=== PATIENT | male | born 1975 | race Caucasian/White ===

== ENCOUNTER 2017-12-23 21:39 | Emergency (ER) | payer BC ==
--- NOTE | 2017-12-23 22:42 | EDM.PDOC ---
ED HPI GENERAL MEDICAL PROBLEM - General Chief Complaint: Abdominal Pain Stated Complaint: ABDOMINAL PAIN/BLOOD IN STOOL Time Seen by Provider: 12/23/17 22:39 Source of Information: Reports: Patient History Limitations: Reports: No Limitations - History of Present Illness INITIAL COMMENTS - FREE TEXT/NARRATIVE: 42-year-old male presents to the ED with diffuse upper and mid abdominal pain most of today. Associated diarrhea stools 3 which were semi-formed stool which contain bright red blood. This is the primary reason for him coming to the ED. Patient reports she stopped drinking alcohol about 3 weeks ago. He has not had any nausea vomiting and certainly has never had any he met emesis. Ever had any bleeding per rectum either. Stools usually were on the looser side when he was drinking alcohol but more recently have been calm more formed and somewhat difficult to pass. He had a hard painful stool yesterday. No associated fever or chills. Patient states for a while though he would have to lie still in the position due to the intensity of the abdominal pain. He has eaten today but not near as much is normal. Onset: Today Onset Date: 12/23/17 Onset Time: 08:00 Duration: Hour(s): Location: Reports: Abdomen (Diffuse mid and upper abdominal discomfort.), Other (Diarrhea with bright red blood noted in the stool.) Quality: Reports: Ache, Sharp, Stabbing, Other. Denies: Same as Previous Episode Severity: Moderate (4-5 out of 10) Improves with: Reports: Other Worsens with: Reports: Eating (Not eating) Context: Denies: Activity, Exercise, Lifting, Sick Contact, Trauma, Other Associated Symptoms: Reports: Loss of Appetite, Other (Preliminary bleeding per rectum). 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 He was primarily drinking beer. Usually less than 10 per day. He is currently in AA and enjoying 3 weeks of sobriety.) - Past Surgical History HEENT Surgical History: Reports: Myringotomy w Tube(s) Male Surgical History: Reports: Vasectomy Social & Family History - Caffeine Use Caffeine Use: Reports: Coffee, Soda - Recreational Drug Use Recreational Drug Use: No - Living Situation & Occupation Living situation: Reports: Occupation: Employed ED ROS GENERAL - Review of Systems Review Of Systems: See Below Constitutional: Reports: Chills, Weakness (Through chills.), Fatigue, Decreased Appetite. Denies: Fever, Malaise, Weight Loss HEENT: Reports: No Symptoms Respiratory: Reports: No Symptoms Cardiovascular: Reports: No Symptoms Endocrine: Reports: No Symptoms GI/Abdominal: Reports: Abdominal Pain (See history of present illness), Diarrhea , Decreased Appetite, Hematochezia, Nausea. Denies: Vomiting (Loose pasty stools.) : Reports: No Symptoms (Associated with the intensity of the cramping pain.) Musculoskeletal: Reports: No Symptoms Skin: Reports: No Symptoms Neurological: Reports: No Symptoms ED EXAM, GI/ABD - Physical Exam Exam: See Below Exam Limited By: No Limitations General Appearance: Alert, WD/WN, No Apparent Distress, Other (Patient is showing signs of orthostatic hypotension with slight drop in blood pressure upon standing. BP drop 1/20/86 lying to 113/84 standing heart rate went from 59- 86.) Eyes: Bilateral: Normal Appearance (No signs of jaundice.) Throat/Mouth: Normal Inspection, Normal Lips, Normal Oropharynx Head: Atraumatic, Normocephalic Neck: Normal Inspection, Supple, Non-Tender, Full Range of Motion. No: Lymphadenopathy (L), Lymphadenopathy (R) Respiratory/Chest: No Respiratory Distress, Lungs Clear, Normal Breath Sounds, No Accessory Muscle Use Cardiovascular: Normal Peripheral Pulses, Regular Rate, Rhythm, No Gallop, No Murmur GI/Abdominal Exam: Soft, Tender (Mild tenderness in the epigastrium), Abnormal Bowel Sounds (Hyperactive bowel sounds in all 4 quadrants.). No: Guarding, Rigid, Rebound ( and left lower quadrant and suprapubically.) (Male) Exam: No Hernia Rectal (Males) Exam: Normal Exam, Normal Rectal Tone, Other (Rigid sigmoidoscopy identified a small hemorrhoidal tag at the 3 o'clock position with no active bleeding. He does have a small basilic quarter inch anal fissure at the 6 o'clock position which is bleeding mildly.). No: Black Stool Back Exam: Normal Inspection Extremities: Normal Inspection, Normal Range of Motion, Non-Tender, No Pedal Edema Neurological: Alert, Oriented, CN II-XII Intact, Normal Cognition, Normal Gait, Inattentive Psychiatric: Normal Affect, Normal Mood Skin Exam: Warm, Dry, Intact, Normal Color, No Rash ED ABDOMINAL/GI PROCEDURES - Additional/Other Procedure(s) Procedure(s) (Free Text): Rigid sigmoidoscopy carried out to 18 cm. The bowel wall appears quite friable with numerous small blood vessels on the surface with no angiodysplasia evident. Stool at the 18 cm justice was dark green and semi-formed. I did identify a small hemorrhoidal tag at the 3 o'clock position with no active bleeding. Other hemorrhoids were identified. There is a small less than 1/4 inch anal fissure at the internal brim of the anus at the 6 o'clock position which was actively bleeding and friable in touch. No polyps were identified no ulcerations were identified Course - Vital Signs Last Recorded V/S: Last Vital Signs Temp 36.8 C 12/23/17 21:45 Pulse 64 12/23/17 21:45 Resp 18 12/23/17 21:45 BP 144/97 H 12/23/17 21:45 Pulse Ox 99 12/23/17 21:45 Orthostatic Blood Pressure [ 113/84 Standing] Orthostatic Blood Pressure [ 132/94 Sitting] Orthostatic Blood Pressure [ 120/86 Supine] - Orders/Labs/Meds Orders: Active Orders 24 hr Category Date Time Status Orthostatic Vital Signs [RC] ASDIRECTED Care 12/23/17 22:41 Active Abdomen 1V Flat [CR] Stat Exams 12/23/17 22:41 Taken Sodium Chloride 0.9% [Normal Saline] 1,000 ml Med 12/23/17 22:45 Active IV ASDIRECTED Medication Orders Sodium Chloride (Normal Saline) 1,000 mls @ 999 mls/hr IV ASDIRECTED KAUR Last Admin: 12/23/17 23:08 Dose: 999 mls/hr Labs: Laboratory Tests 12/23/17 12/23/17 12/23/17 Range/Units 22:52 22:52 22:52 WBC 7.87 (4.23-9.07) K/mm3 RBC 4.91 (4.63-6.08) M/mm3 Hgb 14.5 (13.7-17.5) gm/L Hct 43.1 (40.1-51.0) % MCV 87.8 (79.0-92.2) fl MCH 29.5 (25.7-32.2) pg MCHC 33.6 (32.2-35.5) g/dl RDW Std Deviation 40.9 (35.1-43.9) fL Plt Count 282 (163-337) K/mm3 MPV 9.6 (9.4-12.3) fl Neutrophils % (Manual) 68 H (40-60) % Band Neutrophils % 0 (0-10) % Lymphocytes % (Manual) 24 (20-40) % Atypical Lymphs % 0 % Monocytes % (Manual) 6 (2-10) % Eosinophils % (Manual) 2 (0.8-7.0) % Basophils % (Manual) 0 L (0.2-1.2) Platelet Estimate Adequate RBC Morph Comment Normal PT 11.4 (9.5-12.1) SECONDS INR 1.05 APTT 28 (24-31) SECONDS Sodium 141 (136-145) mEq/L Potassium 3.7 (3.5-5.1) mEq/L Chloride 105 (98-107) mEq/L Carbon Dioxide 27 (21-32) mEq/L Anion Gap 12.7 (5-15) BUN 9 (7-18) mg/dL Creatinine 1.0 (0.7-1.3) mg/dL Est Cr Clr Drug Dosing 110.97 mL/min Estimated GFR (MDRD) > 60 (>60) mL/min BUN/Creatinine Ratio 9.0 L (14-18) Glucose 103 (74-106) mg/dL Calcium 8.7 (8.5-10.1) mg/dL Magnesium 2.0 (1.8-2.4) mg/dl Total Bilirubin 0.4 (0.2-1.0) mg/dL AST 13 L (15-37) U/L ALT 22 (16-63) U/L Alkaline Phosphatase 61 (46-116) U/L C-Reactive Protein < 0.2 (<1.0) mg/dL Total Protein 6.6 (6.4-8.2) g/dl Albumin 3.6 (3.4-5.0) g/dl Globulin 3.0 gm/dL Albumin/Globulin Ratio 1.2 (1-2) Lipase 119 (73-393) U/L Urine Color (Yellow) Urine Appearance (Clear) Urine pH (5.0-8.0) Ur Specific [place] (1.005-1.030) Urine Protein (Negative) Urine Glucose (UA) (Negative) Urine Ketones (Negative) Urine Occult Blood (Negative) Urine Nitrite (Negative) Urine Bilirubin (Negative) Urine Urobilinogen (0.2-1.0) Ur Leukocyte Esterase (Negative) Urine RBC (0-5) /hpf Urine WBC (0-5) /hpf Ur Epithelial Cells (0-5) /hpf Urine Bacteria (FEW) /hpf Urine Mucus (FEW) /hpf //18 Range/Units 23:56 WBC (4.23-9.07) K/mm3 RBC (4.63-6.08) M/mm3 Hgb (13.7-17.5) gm/L Hct (40.1-51.0) % MCV (79.0-92.2) fl MCH (25.7-32.2) pg MCHC (32.2-35.5) g/dl RDW Std Deviation (35.1-43.9) fL Plt Count (163-337) K/mm3 MPV (9.4-12.3) fl Neutrophils % (Manual) (40-60) % Band Neutrophils % (0-10) % Lymphocytes % (Manual) (20-40) % Atypical Lymphs % % Monocytes % (Manual) (2-10) % Eosinophils % (Manual) (0.8-7.0) % Basophils % (Manual) (0.2-1.2) Platelet Estimate RBC Morph Comment PT (9.5-12.1) SECONDS INR APTT (24-31) SECONDS Sodium (136-145) mEq/L Potassium (3.5-5.1) mEq/L Chloride (98-107) mEq/L Carbon Dioxide (21-32) mEq/L Anion Gap (5-15) BUN (7-18) mg/dL Creatinine (0.7-1.3) mg/dL Est Cr Clr Drug Dosing mL/min Estimated GFR (MDRD) (>60) mL/min BUN/Creatinine Ratio (14-18) Glucose (74-106) mg/dL Calcium (8.5-10.1) mg/dL Magnesium (1.8-2.4) mg/dl Total Bilirubin (0.2-1.0) mg/dL AST (15-37) U/L ALT (16-63) U/L Alkaline Phosphatase (46-116) U/L C-Reactive Protein (<1.0) mg/dL Total Protein (6.4-8.2) g/dl Albumin (3.4-5.0) g/dl Globulin gm/dL Albumin/Globulin Ratio (1-2) Lipase (73-393) U/L Urine Color Yellow (Yellow) Urine Appearance Clear (Clear) Urine pH 6.0 (5.0-8.0) Ur Specific [place] 1.010 (1.005-1.030) Urine Protein Negative (Negative) Urine Glucose (UA) Negative (Negative) Urine Ketones Negative (Negative) Urine Occult Blood Negative (Negative) Urine Nitrite Negative (Negative) Urine Bilirubin Negative (Negative) Urine Urobilinogen 0.2 (0.2-1.0) Ur Leukocyte Esterase Negative (Negative) Urine RBC Not seen (0-5) /hpf Urine WBC Not seen (0-5) /hpf Ur Epithelial Cells 0-5 (0-5) /hpf Urine Bacteria Rare (FEW) /hpf Urine Mucus Not seen (FEW) /hpf Meds: Medications Generic Name Dose Route Start Last Admin Trade Name Freq PRN Reason Stop Dose Admin Sodium Chloride 1,000 mls @ 999 mls/hr 12/23/17 22:45 12/23/17 23:08 Normal Saline IV 999 mls/hr ASDIRECTED KAUR Administration Discontinued Medications Generic Name Dose Route Start Last Admin Trade Name Freq PRN Reason Stop Dose Admin Dicyclomine HCl 20 mg 12/24/17 01:38 Bentyl PO 12/24/17 01:39 ONETIME ONE Hydrocortisone Acetate 25 mg 12/24/17 01:34 Anucort-Hc RECTAL 12/24/17 01:35 ONETIME ONE Lidocaine HCl 10 ml 12/24/17 00:45 12/24/17 00:49 Xylocaine 4% Top Soln MUCMEM 12/24/17 00:46 Not Given ONETIME ONE Lidocaine HCl 10 ml 12/24/17 00:49 12/24/17 00:56 Xylocaine 2% Jelly MUCMEM 12/24/17 00:50 10 ml ONETIME ONE Administration Lidocaine HCl Confirm 12/24/17 00:49 12/24/17 00:56 Xylocaine 2% Jelly Administered 12/24/17 00:50 Not Given Dose 10 ml .[address] .[facility] ONE - Radiology Interpretation Free Text/Narrative:: 42-year-old male presents to the ED with development of diffuse mid abdominal cramping pain today such with 3 diarrhea stools almost all containing bright red blood and blood with wiping. Patient is concerned as he stopped drinking alcohol about 3 weeks ago and is concerned that his bleeding may be related to previous alcohol abuse. He has no fever but has had some chills. At times he has intense colicky type midabdominal pain that is relieved by diarrhea stool. Has not had much to eat today. Exam reveals him to be mildly orthostatic. Therefore IV will be normal saline at open. Benign abdominal examination although very tender suprapubically and epigastric area. No previous surgical scars. Plan routine labs to be done. This includes PTT and PT. If labs are negative will discuss rigid sigmoidoscopy to try to identify the source of bright red rectal bleeding. - Re-Assessments/Exams Free Text/Narrative Re-Assessment/Exam: 12/24/17 00:50 Labs reveal a normal white count is 7.87 with 60% neutrophils and no bands reported. Hemoglobin is excellent at 14.5 and hematocrit is 43.1. Platelet count is normal 282,000. PT is 11.4 with an INR 1.05. PTT is 28. Sodium is 141 with potassium of 3.7. Chloride 105 bicarbonate 27. Anion gap is 12.7. BUN is 9 with a creatinine of 1.0. Glucose is 103. Calcium normal at 8.7. Magnesium normal at 2.0. Liver function is normal. C-reactive protein is less than 0.2. Lipase normal at 119. Urinalysis is normal. Spoke with the patient about the lab work which is all normal. Decision made to proceed with rigid sigmoidoscopy to an effort to identify the source of his rectal bleeding. I gave that he has a ruptured internal hemorrhoid as a cause of his bleeding due to passage of fairly firm hard stool a few days ago. Current stools are loose and diarrhea but he does not show any signs or symptoms of significant dysentery. His only had 3 loose stools that contained blood in the last 24 hours. 12/24/17 01:52 rigid sigmoidoscopy carried out to 18 cm with no complications. There is some formed green stool at the 18 cm justice. No blood is identified at this area. The mucosa of the colon appeared to be somewhat inflammatory. There are numerous small blood vessels on the surface of the colon with no active bleeding. No ulcerations are evident. I did abut identify a small hemorrhoidal tag at the 3 o'clock position with no active bleeding. There is a small anal fissure at the 6 o'clock position that is friable and bleeding on touch with the sigmoidoscope. This is the source of his bleeding. Tubal be a Anusol HC suppository at this time. Modify his diet with clear fluids and avoid all dairy products and no apple or grape juice until stools are formed backup. Bentyl 20 mg was given in the ED to alleviate abdominal cramping pain. Patient appears developed viral gastroenteritis to cause his abdominal pain but the bleeding is coming from a small anal fissure from passage of a hard stool yesterday. Stools have become more formed up and slightly constipated since he stopped drinking alcohol 3 weeks ago. advised if constipation issues persist he is to pick pulling machine tender some MiraLAX and use 1 scoop daily for 3-4 weeks to regulate his bowels. Expect some bleeding per rectum for the next day or 2 and then it should her up completely .If not he requires further investigation. Departure - Departure Time of Disposition: 01:34 Disposition: Home, Self-Care 01 Condition: Fair Clinical Impression: Rectal bleeding, Acute anal fissure, Internal hemorrhoid, Diarrhea - Discharge Information *PRESCRIPTION DRUG MONITORING PROGRAM REVIEWED*: Not Applicable *COPY OF PRESCRIPTION DRUG MONITORING REPORT IN PATIENT FREIDA: Not Applicable Instructions: Anal Fissure, Adult, [id number] Referrals: Les Antony MD [Primary Care Provider] - Forms: ED Department Discharge Additional Instructions: Evaluation the emergency room today in regards to diffuse abdominal cramping pain with diarrhea associated with bleeding per rectum 3 in the last 16-18 hours. Previous to this identified that you had a hard stool that was somewhat difficult to pass. Did find recent discontinuation of alcohol use 3 weeks ago. Complaint of diffuse upper mid abdominal pain. This pain tended to come and go i.e. intestinal colic type pain. Associated blood noted in stool passage. Lab work proved to be completely normal with no signs of any infective process. There is no signs of pericarditis or liver inflammation. Therefore a rigid sigmoidoscopy was carried out to look into the lower colon to see if I could identify source of bleeding. Identified a small internal hemorrhoid at the 3 o' clock position that was in the process of healing with no active bleeding at this time. Was also a small anal fissure at the 6 o'clock position which means a tear in the lining of the anus likely from passage of hard stool. Explosive type diarrhea can also cause an anal fissure at times. Therefore expect some blood in your stool perhaps with the next couple of bowel movements in the next day or 2 but then it should clear up completely. Diet should be dairy free and no apple or grape juice until stools are formed backup. Diarrhea likely is secondary to a viral infection. Suggest using a hydrocortisone Anusol suppository per rectum before bed tonight. You're also given Bentyl 20 mg by mouth before leaving the ED which should alleviate abdominal cramping pain throughout the rest of tonight. I would suggest Gatorade or Powerade to drink either tonight or tomorrow to make sure you don't develop increased abdominal cramping pain from eating. If tolerated then it's okay to progress diet to soup such as turkey rice/ chicken noodle etc. and see how well this is tolerated. Most viral gastroenteritis is and diarrhea clear on there own over a period of 48-72 hours. - My Orders Last 24 Hours: My Active Orders 12/23/17 22:41 Orthostatic Vital Signs [RC] ASDIRECTED Abdomen 1V Flat [CR] Stat 12/23/17 22:45 Sodium Chloride 0.9% [Normal Saline] 1,000 ml IV ASDIRECTED - Assessment/Plan Last 24 Hours: My Active Orders 12/23/17 22:41 Orthostatic Vital Signs [RC] ASDIRECTED Abdomen 1V Flat [CR] Stat 12/23/17 22:45 Sodium Chloride 0.9% [Normal Saline] 1,000 ml IV ASDIRECTED
[2017-12-23] MEDS ORDERED: Sodium Chloride 0.9% 1,000 ML IV SCH (22:45)
[2017-12-24] MEDS ORDERED: Lidocaine 4% Top Soln 50 ML Bottle MUCMEM ONE (00:45)
[2017-12-24] MEDS ORDERED: Lidocaine 2% Jelly 10 ML Urojet MUCMEM ONE (00:49)
[2017-12-24] MEDS ORDERED: Lidocaine 2% Jelly 10 ML Urojet ONE (00:49)
[2017-12-24] MEDS ORDERED: Hydrocortisone Acetate 25 MG Supp RECTAL ONE (01:34)
[2017-12-24] MEDS ORDERED: Dicyclomine 10 MG Cap PO ONE (01:38)
--- NOTE | 2017-12-27 06:52 | CR ---
Abdomen: Supine view of the abdomen was obtained. Comparison: No prior abdominal x-ray. Scattered gas noted within small bowel and within colon which appears within normal limits. Calcifications are identified within the pelvis which are felt compatible with phleboliths. No soft tissue abnormality is seen. Bony structures appear within normal limits. Impression: 1. Incidental findings as described above. Diagnostic code #2
== END 2017-12-24 01:55 | disposition home or self-care (01) ==
LOC: JD.ED 21:39
DX: K62.5 Hemorrhage of anus and rectum (principal); K64.8 Other hemorrhoids; K60.2 Anal fissure, unspecified; F41.9 Anxiety disorder, unspecified; F32.9 Major depressive disorder, single episode, unspecified; R19.7 Diarrhea, unspecified
CPT/HCPCS: 36415; 45300; 74018; 80053; 81001; 83690; 83735; 85007; 85027; 85610; 85730; 86140; 96360; 99284; A9270; J7040; 99283-25

== ENCOUNTER 2019-01-13 15:30 | Emergency (ER) | payer BC ==
--- NOTE | 2019-01-13 15:54 | EDM.PDOC ---
ED HPI GENERAL MEDICAL PROBLEM - General Chief Complaint: Abdominal Pain Stated Complaint: ABD PAIN Time Seen by Provider: 01/13/19 15:54 Source of Information: Reports: Patient History Limitations: Reports: No Limitations - History of Present Illness INITIAL COMMENTS - FREE TEXT/NARRATIVE: 43-year-old male presents the ED with acute onset of severe epigastric periumbilical abdominal pain that radiated across both sides of his upper abdomen starting about 2-1/2 hours ago. He states for a while he had to rock back and forth due to the severity of the pain. Taking his chemotherapy medication on an empty stomach this morning and is not sure if this set things off or not. He has not had a bowel movement yet today either. She was diagnosed with colon cancer he believes in the right side of his colon in July of this year and required a right hemicolectomy done through laparoscopic surgery. He is on prophylactic chemotherapy in for infusions every 3 weeks and is on daily dose of Capecitabine 2000 mg twice daily. This medication carries a long list of side effects including peripheral neuropathy which the patient has developed and can cause severe bone marrow suppression as well as multiple dermatological problems. He expresses a great deal of muscle cramps everywhere in his body usually associated with the infusions. He believes he has one left and then he has done his 6 months of treatment and then will have a CT scan performed. He is followed by oncology services at [facility] in [place]. Onset: Today Onset Date: 01/13/19 Onset Time: 14:00 Duration: Hour(s): Location: Reports: Abdomen Quality: Reports: Sharp, Stabbing (Periumbilical and upper abdomen radiating across both sides of his abdomen slightly into his flanks.), Other Severity: Severe (Constant pain with a strong colicky component cannot attend) Improves with: Reports: None Worsens with: Reports: None Context: Denies: Activity, Exercise, Lifting, Sick Contact, Trauma, Other Associated Symptoms: Reports: Loss of Appetite, Malaise, Nausea/Vomiting, Weakness. Denies: Confusion, Chest Pain, Cough, cough w sputum, Diaphoresis, Fever/Chills, Headaches, Rash, Seizure (Nausea but no vomiting. Uses promethazine gel when he needs to.), Shortness of Breath, Syncope Treatments TRAFFIC CHECKER: Reports: Other (see below) (Usually takes only Tylenol or Motrin for pain relief.) Abdomen Pain Score (Numeric/FACES): 5 - Related Data Allergies Allergy/AdvReac Type Severity Reaction Status Date / Time digoxin Allergy Arrhythmias Verified 01/13/19 15:48 lorazepam Allergy Agitation Verified 01/13/19 15:48 oxycodone Allergy Other Verified 01/13/19 15:48 Home Meds: Home Meds Capecitabine 2,000 mg PO BID 11/27/18 [History] dexAMETHasone [Dexamethasone] 4 mg PO ASDIRECTED 11/27/18 [History] Magnesium Chloride [Slow-Mag] 71.5 mg PO DAILY #30 tablet. 01/13/19 [Rx] Promethazine [Phenergan] 1 dose TOP ASDIRECTED PRN 01/13/19 [History] Past Medical History Other Gastrointestinal History: colon cancer Psychiatric History: Reports: Anxiety, Depression, Other (See Below) Oncologic (Cancer) History: Reports: Colon (He believes he had right colon cancer required right hemicolectomy carried out in July of this year. His was done in [place]. Since then he's been receiving chemotherapy intravenously every 3 weeks and takes pills twice daily prophylactically to prevent recurrence of cancer.) - Past Surgical History HEENT Surgical History: Reports: Myringotomy w Tube(s) Male Surgical History: Reports: Vasectomy Social & Family History - Family History Family Medical History: Noncontributory - Caffeine Use Caffeine Use: Reports: Coffee, Soda - Living Situation & Occupation Living situation: Reports: Occupation: Employed ED ROS GENERAL - Review of Systems Review Of Systems: See Below Constitutional: Reports: Malaise, Weakness, Fatigue, Decreased Appetite. Denies : Fever, Chills HEENT: Reports: No Symptoms Respiratory: Reports: No Symptoms Cardiovascular: Reports: No Symptoms Endocrine: Reports: Fatigue GI/Abdominal: Reports: Abdominal Pain (History present illness.), Decreased Appetite, Nausea. Denies: Constipation, Diarrhea, Difficulty Swallowing, Distension, Flatus, Hematemesis, Hematochezia, Melena, Stool Incontinence, Vomiting : Reports: No Symptoms Musculoskeletal: Reports: Other (Diffuse intermittent cramping particularly hands and feet.) Skin: Reports: No Symptoms Neurological: Reports: Paresthesia Psychiatric: Reports: No Symptoms Hematologic/Lymphatic: Reports: No Symptoms Immunologic: Reports: No Symptoms ED EXAM, GI/ABD - Physical Exam Exam: See Below Exam Limited By: No Limitations General Appearance: Alert, WD/WN, Mild Distress, Other (He does feel quite warm to palpation. Nurses report him to 36.8. Pulse of 94 respiratory of 18 BP 120/ 81 sats are 98% on room air.) Eyes: Bilateral: Normal Appearance (No scleral icterus.), Pale Conjunctiva ( Conjunctiva are minimally pallid.) Throat/Mouth: Normal Inspection, Normal Lips, Normal Oropharynx Head: Atraumatic, Normocephalic Neck: Normal Inspection, Supple, Non-Tender, Full Range of Motion. No: Lymphadenopathy (L), Lymphadenopathy (R) Respiratory/Chest: No Respiratory Distress, Lungs Clear, Normal Breath Sounds, No Accessory Muscle Use Cardiovascular: Normal Peripheral Pulses, Regular Rate, Rhythm, No Edema, No Murmur, No Rub GI/Abdominal Exam: No Organomegaly, No Distention, Tender, Abnormal Bowel Sounds (Bowel sounds are very active in all 4 quadrants quite hyperactive.), Other (He has evidence of previous laparoscopic surgery with scars well-healed) . No: Guarding, Rigid, Rebound (Male) Exam: No Hernia, Other Back Exam: Normal Inspection (No inguinal adenopathy.), Full Range of Motion. No: CVA Tenderness (L), CVA Tenderness (R) Extremities: Normal Inspection, Normal Range of Motion, Non-Tender Neurological: Alert, Oriented, CN II-XII Intact, Normal Cognition, Normal Gait Psychiatric: Normal Affect, Normal Mood Skin Exam: Warm, Dry, Intact, Normal Color, No Rash Course - Vital Signs Last Recorded V/S: Last Vital Signs Temp 36.8 C 01/13/19 15:44 Pulse 94 01/13/19 15:44 Resp 18 01/13/19 15:44 BP 120/81 01/13/19 15:44 Pulse Ox 98 01/13/19 15:44 - Orders/Labs/Meds Orders: Active Orders 24 hr Category Date Time Status Abdomen 1V Flat [CR] Stat Exams 01/13/19 16:51 Ordered Dextrose 5%-Lactated Ringers 1,000 ml Med 01/13/19 16:15 Active IV ASDIRECTED Medication Orders Dextrose/Lactated Ringer's (Dextrose 5%-Lactated Ringers) 1,000 mls @ 999 mls/ hr IV ASDIRECTED KAUR Last Admin: 01/13/19 16:18 Dose: 999 mls/hr Labs: Laboratory Tests 01/13/19 01/13/19 Range/Units 16:13 16:13 WBC 6.98 (4.23-9.07) K/mm3 RBC 4.81 (4.63-6.08) M/mm3 Hgb 15.6 (13.7-17.5) gm/L Hct 45.4 (40.1-51.0) % MCV 94.4 H D (79.0-92.2) fl MCH 32.4 H (25.7-32.2) pg MCHC 34.4 (32.2-35.5) g/dl RDW Std Deviation 55.6 H (35.1-43.9) fL Plt Count 113 L D (163-337) K/mm3 MPV 9.5 (9.4-12.3) fl Neutrophils % (Manual) 66 H (40-60) % Band Neutrophils % 0 (0-10) % Lymphocytes % (Manual) 31 (20-40) % Atypical Lymphs % 0 % Monocytes % (Manual) 2 (2-10) % Eosinophils % (Manual) 1 (0.8-7.0) % Basophils % (Manual) 0 L (0.2-1.2) Platelet Estimate Decreased Plt Morphology Comment See note RBC Morph Comment Normal Sodium 139 (136-145) mEq/L Potassium 3.8 (3.5-5.1) mEq/L Chloride 103 (98-107) mEq/L Carbon Dioxide 25 (21-32) mEq/L Anion Gap 14.8 (5-15) BUN 16 (7-18) mg/dL Creatinine 0.9 (0.7-1.3) mg/dL Est Cr Clr Drug Dosing 122.07 mL/min Estimated GFR (MDRD) > 60 (>60) mL/min BUN/Creatinine Ratio 17.8 (14-18) Glucose 142 H (74-106) mg/dL Calcium 8.9 (8.5-10.1) mg/dL Magnesium 1.7 L (1.8-2.4) mg/dl Total Bilirubin 0.7 (0.2-1.0) mg/dL AST 52 H (15-37) U/L ALT 50 (16-63) U/L Alkaline Phosphatase 104 (46-116) U/L C-Reactive Protein 0.5 (<1.0) mg/dL Total Protein 7.0 (6.4-8.2) g/dl Albumin 3.4 (3.4-5.0) g/dl Globulin 3.6 gm/dL Albumin/Globulin Ratio 0.9 L (1-2) Amylase 97 (25-115) U/L Meds: Medications Generic Name Dose Route Start Last Admin Trade Name Freq PRN Reason Stop Dose Admin Dextrose/Lactated Ringer's 1,000 mls @ 999 mls/hr 01/13/19 16:15 01/13/19 16: 18 Dextrose 5%-Lactated Ringers IV 999 mls/hr ASDIRECTED KAUR Administration Discontinued Medications Generic Name Dose Route Start Last Admin Trade Name Freq PRN Reason Stop Dose Admin Hydromorphone HCl 0.5 mg 01/13/19 16:04 01/13/19 16:15 Dilaudid IVPUSH 01/13/19 16:05 Not Given ONETIME ONE Metoclopramide HCl 10 mg 01/13/19 16:05 01/13/19 16:15 Reglan IVPUSH 01/13/19 16:06 10 mg ONETIME ONE Administration - Radiology Interpretation Free Text/Narrative:: 43-year-old male presents to the ED with acute onset of severe epigastric periumbilical abdominal pain about 2 hours ago. No specific reason for this pain to occurred. PT states he did take his chemotherapy on an empty stomach this morning. Patient has a diagnosis of primary right colon cancer diagnosed in July of this year and required a right hemicolectomy. He is currently on prophylactic chemotherapy. This is daily tablets twice daily and infusions of medication every 3 weeks. Has 1 more infusion and then he is done with chemotherapy. Exam reveals him to be somewhat warm to palpation. The medication that he is on could cause severe immune no suppression. I will therefore have labs done to include a manual differential. He has very active bowel sounds in all 4 quadrants. He has not had a bowel movement today. The medications listed as potentially causing constipation. He states he never had diarrhea while on the medication. He has been able to maintain his weight. Plan 1 view the abdomen will be done with routine lab work. Given Dilaudid 0.5 mg IV with Reglan 10 mg IV for nausea and pain relief. On 223 out of 10 and was initially 10 out of 10. - Re-Assessments/Exams Free Text/Narrative Re-Assessment/Exam: 01/13/19 16:52 Patient refused the Dilaudid as apparently it has caused problems in the past it is caused in her bowel obstruction symptoms. The Reglan dosage I gave him 10 mg seems to caused a mild dystonic reaction. This may be due to colonic ago he used Phenergan gel. 01/13/19 17:27 Labs reveal a white count of 6.98. The need for count is 66% with no band cells. Hemoglobin is 15.6 with hematocrit of 45.4. MCV is slightly elevated at 94.4. Platelet count slightly low at 113,000. Sodium is 139 with a potassium of 3.8. Chloride is 103 with a bicarbonate 25. Anion gap is 14.8. BUN is 16 with a creatinine of 0.9. GFR remains greater than 60. BUN/creatinine ratio is 17.8. Glucose is 142. Ms. 8.9. Magnesium slightly low at 1.7. Total bilirubin 0.7. Liver function normal. CRP is 0.5 total protein is 7.0. Amylase is normal at 97. He is feeling completely pain free. He did have a bowel movement before coming to the hospital. X-ray never did get done because they are tied up elsewhere. I just want to make sure he didn't have any signs of a bowel obstruction. He's feeling so much better he prefers to just be discharged at this time without the x-ray. Departure - Departure Time of Disposition: 17:32 Disposition: Home, Self-Care 01 Condition: Fair Clinical Impression: Abdominal pain Qualifiers: Abdominal location: periumbilical Qualified Code(s): R10.33 - Periumbilical pain Adverse effects of medication Qualifiers: Encounter type: initial encounter Qualified Code(s): T50.905A - Adverse effect of unspecified drugs, medicaments and biological substances, initial encounter - Discharge Information *PRESCRIPTION DRUG MONITORING PROGRAM REVIEWED*: No *COPY OF PRESCRIPTION DRUG MONITORING REPORT IN PATIENT FREIDA: No Prescriptions: Magnesium Chloride [Slow-Mag] 71.5 mg PO DAILY #30 tablet. Referrals: Darrick Cutler MD [Primary Care Provider] - Forms: ED Department Discharge Additional Instructions: Evaluation in the emergency him today in regards to development of quite severe upper and mid abdominal pain after eating noodles for dinner today. As you indicated you to take a chemotherapy protocol today on an empty stomach but it has never caused such severe pain in the past. The plan in the emergency room was for you to have an x-ray of your abdomen to make sure there is no bowel obstruction and to assess if there was a significant stool load her constipation issue. He did receive IV fluids and Reglan 10 mg in the ED which did cause some mild anxiety/akathisia which means restlessness which is a side effect of the medication and sometimes occurs particularly if you are on another similar type medication such as the Phenergan gel. It is not a real allergy it is a side effect and can be improved by just lowering the dosage a bit. Pain eased up completely while you were in the hospital. Lab work proved to be completely normal other than slightly low magnesium at 1.7. Low magnesium may be contributing to your recurrent muscle cramps. I will write a prescription for magnesium supplement called Slow-Mag and you can fill it if you continue to have severe cramps even after you are done in your chemotherapy. Get most of her magnesium from eating meat. - My Orders Last 24 Hours: My Active Orders 01/13/19 16:15 Dextrose 5%-Lactated Ringers 1,000 ml IV ASDIRECTED 01/13/19 16:51 Abdomen 1V Flat [CR] Stat - Assessment/Plan Last 24 Hours: My Active Orders 01/13/19 16:15 Dextrose 5%-Lactated Ringers 1,000 ml IV ASDIRECTED 01/13/19 16:51 Abdomen 1V Flat [CR] Stat
[2019-01-13] MEDS ORDERED: HYDROmorphone 0.5 MG/0.5 ML Syringe IVPUSH ONE (16:04)
[2019-01-13] MEDS ORDERED: Metoclopramide 10 MG/2 ML SDV IVPUSH ONE (16:05)
[2019-01-13] MEDS ORDERED: Dextrose 5%-Lactated Ringers 1,000 ML IV SCH (16:15)
== END 2019-01-13 17:45 | disposition home or self-care (01) ==
LOC: JD.ED 15:30
DX: R10.33 Periumbilical pain (principal); T45.1X5A Adverse effect of antineoplastic and immunosuppressive drugs, initial encounter; C18.9 Malignant neoplasm of colon, unspecified; Z88.8 Allergy status to other drugs, medicaments and biological substances; Z88.6 Allergy status to analgesic agent; Z79.899 Other long term (current) drug therapy
CPT/HCPCS: 36415; 80053; 82150; 83735; 85007; 85027; 86140; 96361; 96374; 99284; J2765; J7042